=== PATIENT | male | born 1960 | race Caucasian/White ===

== ENCOUNTER 2022-05-18 19:43 | Emergency (ER) | payer SELFPAY ==
[2022-05-18 20:11] LABS: #Basophils 0.2 thou/uL (0.0-0.2); #Eosinphils 0.5 thou/uL (0.0-0.7); #Neutrophils 10.2 thou/uL (1.40-6.50); %Basophils 1.2 % (0.0-1.0); %Eosinophils 3.9 % (0.0-10.0); %Lymphocytes 14.2 % (21.0-51.0); %Monocytes 7.4 % (0.0-10.0); %Neutrophils 73.3 % (42.0-75.0); Hemoglobin 12.2 g/dL (14.0-18.0); Mean Corpuscular HGB CONC 33.5 g/dL (32.0-36.0); Mean Corpuscular Hemoglobin 26.9 pg (27.0-31.0); Mean Corpuscular Volume 80.3 fL (78.0-98.0); Mean Platelet Volume 6.9 fL (7.4-10.4); Platelet Count 262 thou/uL (130-400); RBC Distribution Width 14.8 % (11.5-14.5); Red Blood Cell (RBC) Count 4.54 mill/uL (4.70-6.10); White Blood Cell (WBC) Count 13.9 thou/uL (4.8-10.8)
[2022-05-18] MEDS ORDERED: Ondansetron PF 4 MG/2 ML Vial ONE (20:27)
[2022-05-18] MEDS ORDERED: Morphine 2 MG/ML VIAL ONE (20:27)
[2022-05-18] MEDS ORDERED: metroNIDAZOLE 500 MG/100 ML BAG ONE (20:27)
[2022-05-18] MEDS ORDERED: Ketorolac Tromethamine 30 MG/ML VIAL ONE (20:27)
[2022-05-18 20:29] LABS: ALT (SGPT) 18 U/L (8-55); AST (SGOT) 14 U/L (5-34); Albumin 3.6 g/dL (3.4-4.8); Alkaline Phosphatase 76 U/L (40-110); Anion Gap 14 mmol/L (10-20); BUN (Urea Nitrogen) 19 mg/dL (8.4-25.7); Bilirubin, Total 0.8 mg/dL (0.2-1.2); Calc. Creatinine Clearance 0 mL/min (70-130); Carbon Dioxide 24 mmol/L (23-31); Chloride 101 mmol/L (98-107); Estimated GFR 89; Glucose 91 mg/dL (80-115); Potassium 4.2 mmol/L (3.5-5.1); Protein, Total 7.6 g/dL (5.8-8.1); Sodium 135 mmol/L (136-145)
[2022-05-18 20:30] LABS: Acetaminophen Less than 10.0 mcg/mL (10.0-30.0); Alcohol Less than 10 mg/dL (Less than 10); Salicylate Less than 8.0 mg/dL (15.0-30.0)
[2022-05-18 22:23] LABS: Bilirubin Negative (Negative); Blood, Urine Negative (Negative); Clarity Clear (Clear); Glucose, Urine (Dipstick) Negative (Negative); Ketone, Urine Negative (Negative); Leukocyte Negative (Negative); Nitrite Negative (Negative); Protein, Urine (Dipstick) Negative (Neg-Trace); Specific Gravity, Urine 1.015 (1.005-1.030); Urobilinogen 0.2 mg/dL (Less than 2); pH, Urine 5.5 (5.0-9.0)
[2022-05-18 22:35] LABS: Amphetamine Not Detected (NotDetected); Barbiturates Screen Not Detected (NotDetected); Benzodiazepine Screen Not Detected (NotDetected); Cocaine Metabolite Screen Not Detected (NotDetected); Medtox Control Line Valid? VALID (VALID); Methadone Not Detected (NotDetected); Methamphetamine Not Detected (NotDetected); Opiate Screen Not Detected (NotDetected); Oxycodone Screen Not Detected (NotDetected); Phencyclidine (PCP) Not Detected (NotDetected); THC/Cannabinoid Screen Not Detected (NotDetected); Tricyclic Screen Not Detected (NotDetected)
[2022-05-18] MEDS ORDERED: Ciprofloxacin 500 MG TAB ONE (22:58)
[2022-05-18] MEDS ORDERED: Lorazepam 2 MG/ML VIAL ONE (22:58)
[2022-05-18] MEDS ORDERED: Thiamine HCl 200 MG/2 ML VIAL ONE (23:38)
== END 2022-05-18 23:59 | disposition short-term general hospital (02) ==
LOC: BURERS 19:43
DX: R45.851 Suicidal ideations (principal); L03.315 Cellulitis of perineum; L02.31 Cutaneous abscess of buttock; L02.412 Cutaneous abscess of left axilla; L02.411 Cutaneous abscess of right axilla; E11.9 Type 2 diabetes mellitus without complications
CPT/HCPCS: 36415; 80053; 80306; 80307; 81003; 83605; 84443; 85025; 87040; 87070; 87086; 87205; 96365; 96375; J1885; J2060; J2270; J2405; J3370; J3411